=== PATIENT | female | born 1985 | race Caucasian/White ===

== ENCOUNTER 2016-10-21 13:09 | Outpatient (CLI) | payer MEDICAID, OTHER | END 2016-10-21 13:10 | disposition home or self-care (01) | LOC: MADLAB 13:09 | PROVIDERS: ATTEND Obstetrics & Gynecology | DX: Z34.92 Encounter for supervision of normal pregnancy, unspecified, second trimester (principal) | CPT/HCPCS: 36415; 82950 ==

== ENCOUNTER 2016-12-20 09:27 | Emergency (ER) | payer MEDICAID, OTHER ==
[2016-12-20] MEDS ORDERED: Lidocaine 1% w/Epinephrine 1:100K 20 ML VIAL ONE (10:11)
== END 2016-12-20 10:50 | disposition home or self-care (01) ==
LOC: MADERS 09:27
DX: K64.9 Unspecified hemorrhoids (principal); E11.9 Type 2 diabetes mellitus without complications; Z79.84 Long term (current) use of oral hypoglycemic drugs
CPT/HCPCS: 46083; J2001

== ENCOUNTER 2017-09-30 12:51 | Outpatient (CLI) | payer OTHER | END 2017-09-30 12:52 | disposition home or self-care (01) | LOC: MADLAB 12:51 | PROVIDERS: ATTEND Obstetrics & Gynecology | DX: Z86.32 Personal history of gestational diabetes (principal) | CPT/HCPCS: 36415; 82951; 82952 ==

== ENCOUNTER 2018-04-10 12:08 | Emergency (ER) | payer MEDICAID ==
[2018-04-10 13:17] LABS: Bilirubin Negative (Negative); Blood, Urine Negative (Negative); Glucose, Urine (Dipstick) Negative (Negative); Leukocyte Trace (Negative); Nitrite Negative (Negative); Protein, Urine (Dipstick) Negative (Neg-Trace); Specific Gravity, Urine 1.015 (1.005-1.030); Urobilinogen 0.2 mg/dL (0.2-1.0); pH, Urine 6.5 (5.0-9.0)
[2018-04-10 13:20] LABS: Clarity Hazy (Clear)
[2018-04-10 13:21] LABS: Pregnancy Test - Urine (BHCG) POSITIVE (Negative); Pregu Control Background? CLEAR/WHITE (CLR/WHITE); Pregu Control Bar Appear? YES (CONTROL BAR); Specific Gravity 1.015 (1.002-1.036)
[2018-04-10 13:32] LABS: Bacteria/HPF Rare-Few HPF (None Seen); RBC/HPF None Seen HPF (0-3); WBC/HPF 0-3 HPF (0-3)
== END 2018-04-10 13:40 | disposition left against medical advice (07) ==
LOC: MADERS 12:08
DX: O99.89 Other specified diseases and conditions complicating pregnancy, childbirth and the puerperium (principal); R10.31 Right lower quadrant pain; O24.419 Gestational diabetes mellitus in pregnancy, unspecified control; Z3A.01 Less than 8 weeks gestation of pregnancy
CPT/HCPCS: 36415; 81003; 81015; 81025; 84702; 99284

== ENCOUNTER 2024-03-23 20:54 | Emergency (ER) | payer SELFPAY ==
[2024-03-23] MEDS ORDERED: Ketorolac Tromethamine 30 MG (1 mL) VIAL ONE (21:34)
[2024-03-23] MEDS ORDERED: cefTRIAXone (ROCEPHIN) 2 GM VIAL ONE (21:34)
[2024-03-23] MEDS ORDERED: Sodium Chloride 0.9% 100 ML ONE (21:34)
[2024-03-23] MEDS ORDERED: Sodium Chloride 0.9% 1,000 ML ONE (21:35)
[2024-03-23 21:38] LABS: Bilirubin Negative (Negative); Blood, Urine Moderate (Negative); Clarity Cloudy (Clear); Glucose, Urine (Dipstick) Negative (Negative); Ketone, Urine Negative (Negative); Leukocyte Large (Negative); Nitrite Negative (Negative); Protein, Urine (Dipstick) 100 mg/dL (Neg-Trace); Urobilinogen 0.2 mg/dL (Less than 2)
[2024-03-23 21:40] LABS: Pregnancy Test - Urine (BHCG) Negative (Negative)
[2024-03-23 21:41] LABS: Pregu Control Background? CLEAR/WHITE (CLR/WHITE); Pregu Control Bar Appear? YES (CONTROL BAR)
[2024-03-23 21:50] LABS: Bacteria/HPF 1+ HPF (None Seen); CAUTI Indications for Culture Dysuria,urgency,freq; RBC/HPF 0-3 HPF (0-3); Squamous Epithelial 0-3 HPF (0-3); Transitional Epithelial 0-3 HPF (None Seen); WBC/HPF Greater than 50 HPF (0-3)
[2024-03-23 21:51] LABS: Urine Culture Reflex Yes Yes
[2024-03-23 22:13] LABS: Prothrombin Time 13.5 sec (12.0-14.7)
[2024-03-23 22:14] LABS: PTT 29.4 sec (22.9-36.1)
[2024-03-23 22:20] LABS: ALT (SGPT) 9 U/L (8-55); AST (SGOT) 11 U/L (5-34); Albumin 4.4 g/dL (3.5-5.0); Alkaline Phosphatase 68 U/L (40-110); Anion Gap 18 mmol/L (10-20); BUN (Urea Nitrogen) 6 mg/dL (7.0-18.7); Bilirubin, Total 0.5 mg/dL (0.2-1.2); Calc. Creatinine Clearance 0 mL/min (70-130); Calcium 9.9 mg/dL (7.8-10.44); Carbon Dioxide 24 mmol/L (22-29); Chloride 100 mmol/L (98-107); Estimated GFR 76; Globulin 4.2 g/dL (2.4-3.5); Glucose 109 mg/dL (70-105); Potassium 3.7 mmol/L (3.5-5.1); Protein, Total 8.6 g/dL (6.0-8.3); Sodium 138 mmol/L (136-145)
[2024-03-23 22:30] LABS: Hematocrit 43.3 % (36.0-47.0); Hemoglobin 13.5 g/dL (12.0-16.0); Hypochromia SLIGHT = 6-15 cells (100X) (0-5/hpf); MDiff Complete? YES; Mean Corpuscular HGB CONC 31.2 g/dL (32.0-36.0); Mean Corpuscular Hemoglobin 26.1 pg (27.0-31.0); Mean Corpuscular Volume 83.8 fl (78.0-98.0); Mean Platelet Volume 7.2 fL (7.4-10.4); Microcytosis SLIGHT = 6-15 cells (100X) (0-5/hpf); Platelet Adequacy Comment Appears Adequate; Platelet Count 277 10x3/uL (130-400); RBC Distribution Width 12.4 % (11.5-14.5); Red Blood Cell (RBC) Count 5.17 mill/uL (4.20-5.40); White Blood Cell (WBC) Count 9.2 10x3/uL (4.8-10.8)
[2024-03-23 22:31] LABS: Band 1 % (5-11); Eosinophils 1 % (0-10); Lymphocytes 25 % (21-51); Manual Diff?? YES; Monocytes 6 % (0-10); Neutrophil 67 % (42-75)
== END 2024-03-23 21:25 | disposition home or self-care (01) ==
LOC: MADERS 20:54
DX: N39.0 Urinary tract infection, site not specified (principal); E11.9 Type 2 diabetes mellitus without complications; K21.9 Gastro-esophageal reflux disease without esophagitis; F17.290 Nicotine dependence, other tobacco product, uncomplicated
CPT/HCPCS: 80053; 81001; 81025; 83605; 85025; 85610; 85730; 87040; 87077; 87086; 87186; 94760; 96365; 96375; J0696; J1885; J3490; J7050